=== PATIENT | female | born 1965 | race Caucasian/White ===

== ENCOUNTER → 2017-04-26 | Outpatient (CLI) | payer BC ==
[~2017-04-26] MED LIST: DOXYCYCLINE 10100 MG PO
== END ==
LOC: COL.RAD 12:51
DX: M25.511 Pain in right shoulder (principal)
CPT/HCPCS: J3301; Q9967

== ENCOUNTER 2017-08-15 14:17 | Outpatient (RCR) | payer OTHER | END 2017-08-18 13:21 | disposition still patient (30) | LOC: WSOH 14:17 | DX: S46.812A Strain of other muscles, fascia and tendons at shoulder and upper arm level, left arm, initial encounter (principal); M54.89 Other dorsalgia; X50.0XXA Overexertion from strenuous movement or load, initial encounter; Y99.0 Civilian activity done for income or pay; Z90.710 Acquired absence of both cervix and uterus ==

== ENCOUNTER 2017-08-23 13:43 | Outpatient (RCR) | payer OTHER | END 2017-09-20 10:10 | disposition still patient (30) | LOC: WSOH 13:43 | DX: S46.812D Strain of other muscles, fascia and tendons at shoulder and upper arm level, left arm, subsequent encounter (principal); X50.0XXD Overexertion from strenuous movement or load, subsequent encounter; Y99.0 Civilian activity done for income or pay ==

== ENCOUNTER 2017-11-10 10:16 | Outpatient (RCR) | payer OTHER | END 2017-12-19 | disposition home or self-care (01) | LOC: WSOH | DX: M25.562 Pain in left knee (principal); Z88.1 Allergy status to other antibiotic agents ==